=== PATIENT | male | born 1980 | race Caucasian/White ===

== ENCOUNTER 2018-05-17 10:04 | Emergency (ER) | payer BC ==
[~2018-05-17] VITALS: Ht 172.7 cm; Wt 77.3 kg
[2018-05-17 10:10] VITALS: TEMP 98.7
[2018-05-17] MEDS ORDERED: PROAIR HFA0.09 MG/AC IH (10:34)
[2018-05-17] MEDS ORDERED: KLONOPIN 0.5MG0.5 MG PO (10:34)
[2018-05-17 10:41] LABS: BASO % 0.3 % (0.0-2.0); EOS # 0.1 (0.0-0.7); EOS % 0.8 % (0-4.0); GRAN # 6.5 (1.4-6.5); HEMATOCRIT 44.3 % (42.0-52.0); HEMOGLOBIN 15.2 g/dl (13.5-18.0); LYMPH # 3.6 (1.2-3.4); LYMPH % 32.4 % (20.0-51.0); MEAN CELL VOLUME 88 fl (80.0-100.0); MEAN CORPUSCULAR HEMOGLOBIN 30 pg (27.0-31.0); MEAN CORPUSCULAR HGB CONC 34 g/dl (33.0-37.0); MEAN PLATELET VOLUME 9.1 fl (7.4-10.4); MONO # 0.8 (0.1-0.6); MONO % 7.1 % (1.7-9.3); PLATELET COUNT 326 K/mm3 (130-400); RED BLOOD COUNT 5.02 M/mm3 (4.20-5.60); REDCELL DISTRIBUTION WIDTH-CV 12.8 % (11.5-14.5)
[2018-05-17 10:55] LABS: ALANINE AMINOTRANSFERASE 34 U/L (21-72); ALBUMIN 4.5 gm/dL (3.5-5.0); ALKALINE PHOSPHATASE 67 U/L (50-136); ANION GAP 10 mmol/L (7-16); AST,SGOT 30 U/L (15-37); BILIRUBIN,TOTAL 0.6 mg/dL (0.0-1.0); BLOOD UREA NITROGEN 14 mg/dL (9-20); CALCIUM 9.9 mg/dL (8.4-10.2); CARBON DIOXIDE 30 mmol/L (22-30); CHLORIDE 98 mmol/L (98-107); CREATININE, serum 0.67 mg/dL (0.66-1.25); GLUCOSE 83 mg/dL (74-106); LIPASE 43 U/L (23-300); POTASSIUM 3.7 mmol/L (3.4-5.0); SODIUM 138 mmol/L (137-145); TOTAL PROTEIN 7.9 gm/dL (6.4-8.2)
[2018-05-17 11:00] LABS: C-REACTIVE PROTEIN < 0.5 mg/dL (0.0-0.9)
[2018-05-17 11:04] LABS: TROPONIN-I < 0.012 ng/mL (0.000-0.035)
[2018-05-17] MEDS ORDERED: PROTONIX 40MG T40 MG PO (13:14)
[2018-05-17 13:31] VITALS: BP 110/78; PULSE 60
== END 2018-05-17 13:43 | disposition home or self-care (01) ==
LOC: COL.ER 10:04
PROVIDERS: Physician Assistant
DX: R07.89 Other chest pain (principal); K21.9 Gastro-esophageal reflux disease without esophagitis; F41.9 Anxiety disorder, unspecified; F32.9 Major depressive disorder, single episode, unspecified
CPT/HCPCS: C9113; J7030; Q9967

== ENCOUNTER 2019-12-08 12:16 | Emergency (ER) | payer BC ==
[~2019-12-08] VITALS: Ht 175.3 cm; Wt 77.7 kg
[~2019-12-08 12:16] MED LIST: KLONOPIN 0.5MG0.5 MG PO; PROAIR HFA0.09 MG/AC IH; PROTONIX 40MG T40 MG PO
[2019-12-08 12:22] VITALS: BP 131/88; TEMP 98.2
[2019-12-08] MEDS ORDERED: PRILOTC (12:48)
[2019-12-08 14:07] VITALS: PULSE 78
== END 2019-12-08 14:11 | disposition home or self-care (01) ==
LOC: COL.ER 12:16
DX: F41.0 Panic disorder [episodic paroxysmal anxiety] (principal); K21.9 Gastro-esophageal reflux disease without esophagitis; Z91.19 Patient's noncompliance with other medical treatment and regimen

== ENCOUNTER 2020-03-27 19:10 | Emergency (ER) | payer BC ==
[~2020-03-27] VITALS: Ht 175.3 cm; Wt 77.3 kg
[~2020-03-27 19:10] MED LIST changes: +PRILOTC
[2020-03-27 19:38] VITALS: TEMP 98.5
[2020-03-27 20:16] LABS: BASO # 0.1 (0.0-0.2); BASO % 0.6 % (0.0-2.0); EOS # 0.8 (0.0-0.7); EOS % 8.3 % (0-4.0); GRAN # 6.3 (1.4-6.5); GRAN % 62.9 % (42.2-75.2); HEMATOCRIT 39.4 % (42.0-52.0); LYMPH # 2.2 (1.2-3.4); LYMPH % 22.1 % (20.0-51.0); MEAN CELL VOLUME 87 fl (80.0-100.0); MEAN CORPUSCULAR HEMOGLOBIN 29 pg (27.0-31.0); MEAN CORPUSCULAR HGB CONC 33 g/dl (33.0-37.0); MEAN PLATELET VOLUME 8.6 fl (7.4-10.4); MONO # 0.6 (0.1-0.6); MONO % 5.9 % (1.7-9.3); PLATELET COUNT 472 K/mm3 (130-400); RED BLOOD COUNT 4.51 M/mm3 (4.20-5.60); REDCELL DISTRIBUTION WIDTH-CV 12.7 % (11.5-14.5)
[2020-03-27 20:32] LABS: COLLECTION METHOD CLEAN CATCH
[2020-03-27 20:34] LABS: ALBUMIN 4.1 gm/dL (3.5-5.0); BILIRUBIN,TOTAL 0.3 mg/dL (0.0-1.0); CALCIUM 9.3 mg/dL (8.4-10.2); CREATININE, serum 0.81 (0.66-1.25); TOTAL PROTEIN 7.8 gm/dL (6.4-8.2)
[2020-03-27 20:42] LABS: PH 7 (5-8); SQUAMOUS EPITHELIAL None Seen /hpf; URINE APPEARANCE Hazy; URINE BACTERIA None Seen /hpf; URINE BILIRUBIN Negative (NEGATIVE); URINE BLOOD Negative (NEGATIVE); URINE COLOR Yellow; URINE GLUCOSE Negative (NEGATIVE); URINE KETONE Negative (NEGATIVE); URINE LEUKOCYTE ESTERASE Negative (NEGATIVE); URINE NITRATE Negative (NEGATIVE); URINE PROTEIN(semi-quant) Negative (NEGATIVE); URINE UROBILINOGEN Negative (NEGATIVE)
[2020-03-27] MEDS ORDERED: SENOKOT S 50 MG1 TAB PO (21:51)
[2020-03-27] MEDS ORDERED: MAGCITRATE PO (21:51)
[2020-03-27 22:36] VITALS: BP 120/80; PULSE 81
== END 2020-03-27 22:36 | disposition home or self-care (01) ==
LOC: COL.ER 19:10
PROVIDERS: Emergency Medicine
DX: R10.31 Right lower quadrant pain (principal); J45.909 Unspecified asthma, uncomplicated
CPT/HCPCS: Q9967